=== PATIENT | male | born 1935 | race Caucasian/White ===

== ENCOUNTER 2017-10-10 07:34 | Emergency (ER) | payer OTHER, BC ==
[2017-10-10 08:25] VITALS: BP 143/85; PULSE 65; TEMP 98.3; BMI 30.4
--- NOTE | 2017-10-10 08:50 | PDOC ---
History of Present Illness - General Chief Complaint: Back Pain Stated Complaint: PCP SENT FOR CT SCAN NO PRESCRIPTION Time Seen by Provider: 10/10/17 08:29 History Source: Patient Exam Limitations: No Limitations - History of Present Illness Initial Comments: 10/10/17 08:57 This is an 82-year-old gentleman with past medical history of hypertension, glaucoma, anxiety who presents to emergency department with intermittent lower back pain for the past 4-5 days. Patient states he occasionally feels a sharp spasm in his left lower back. Patient denies any urinary difficulties. Patient contacted his primary doctor Dr. Boland on October 09 who asked patient if he was having hematuria. Patient state he was not having hematuria and PMD told him that he probably needed a CAT scan. Patient denies any fevers, chills, headache, chest pain, shortness of breath, abdominal pain, nausea, vomiting, urinary difficulty, difficulty moving bowels. PMD: Krystian PMH: See history of present illness PSH: Denies Tobacco: Stopped 4 months ago prior to that to cigars daily EtOH: Occasional Illicits: Denies Patient denies any travel outside the [place] within the past 30 days or any contact with anyone who is traveled outside the [place] within the past 30 days. Past History - Past Medical History Allergies/Adverse Reactions: Allergies Allergy/AdvReac Type Severity Reaction Status Date / Time No Known Allergies Allergy Verified 10/10/17 08:13 Home Medications: Ambulatory Orders Aspirin [ASA -] 81 mg PO DAILY 07/26/15 Dorzolamide HCl/Timolol Maleat [Cosopt Eye Drops] 10 ml OP BID 07/26/15 Furosemide [Lasix -] 60 mg PO BID 07/26/15 Losartan Potassium 50 mg PO BID 07/26/15 Potassium Chloride [Klor-Con 10] 20 meq PO DAILY 07/26/15 Alprazolam 0.25 mg PO ASDIR 08/08/15 Hydrocortisone Acetate [Anusol Hc Suppository -] 25 mg RC BID #28 supp.rect 10/10 Cyclobenzaprine HCl [Flexeril 10 mg] 10 mg PO BID PRN #30 tablet 10/10/17 Anemia: No Asthma: No COPD: No Dementia: No Diabetes: No Disorders: No HTN: Yes Liver Disease: No Psychiatric Problems: Yes (ANXIETY) Seizures: No Thyroid Disease: No - Surgical History Orthopedic Surgery: Yes (FX RIGHT ARM) - Suicide/Smoking/Psychosocial Hx Smoking History: Never smoked Have you smoked in the past 12 months: Yes If you are a former smoker, when did you quit?: 2 months ago Cigars Per Day: 2 Information on smoking cessation initiated: No 'Breaking Loose' booklet given: 11/03/16 Hx Alcohol Use: No Drug/Substance Use Hx: No Substance Use Type: None Hx Substance Use Treatment: No Review of Systems - Review of Systems Able to Perform ROS?: Yes Is the patient limited Faroese proficient: No Constitutional: No: Symptoms Reported HEENTM: No: Symptoms Reported Respiratory: No: Symptoms reported Cardiac (ROS): No: Symptoms Reported ABD/GI: No: Symptoms Reported : No: Symptoms Reported Musculoskeletal: Yes: See HPI Integumentary: No: Symptoms Reported Neurological: No: Symptoms reported *Physical Exam - Vital Signs Last Vital Signs Temp Pulse Resp BP Pulse Ox 98.3 F 65 18 143/85 100 10/10/17 07:44 10/10/17 07:44 10/10/17 07:44 10/10/17 07:44 10/10/17 07:44 - Physical Exam General Appearance: Yes: Appropriately Dressed. No: Apparent Distress HEENT: positive: EOMI, PANTERA, Normal ENT Inspection, Normal Voice, TMs Normal, Pharynx Normal Neck: positive: Trachea midline, Supple. negative: Tender Respiratory/Chest: positive: Lungs Clear, Normal Breath Sounds. negative: Chest Tender, Respiratory Distress, Accessory Muscle Use Cardiovascular: positive: Regular Rhythm, Regular Rate, S1, S2. negative: Edema (2+ pedal edema), JVD, Murmur Gastrointestinal/Abdominal: positive: Normal Bowel Sounds, Soft. negative: Tender Musculoskeletal: positive: Normal Inspection, Muscle Spasm (left paraspinous immediately superior to iliac crest). negative: CVA Tenderness Extremity: positive: Normal Inspection, Normal Range of Motion Integumentary: positive: Normal Color, Dry, Warm Neurologic: positive: land measurer II-XII NML intact, Fully Oriented, Alert, Normal Mood/ Affect, Normal Response, Motor Strength 5/5 Medical Decision Making - Medical Decision Making 10/10/17 09:06 A/P: 82-year-old gentleman with past medical history of hypertension and glaucoma who presents with 4-5 days of intermittent left lower back pain. On exam there is a palpable muscle spasm in the paraspinous muscles on the left side immediate this appeared to the iliac crest. Patient states when he comes in contact with colds the pain gets worse in the spasms intensify. Differential diagnosis includes renal stone, paraspinous muscle spasm I will collect a UA. Patient is currently asymptomatic. If UA comes back normal I will defer imaging. I'll reevaluate the patient after UA is returns and medicate if necessary. Patient currently denies any pain I will therefore forego pain medication at this time. 10/10/17 11:10 UA is negative. Patient remains a symptomatic. I will send a prescription for Flexeril for patient to take as needed for pain. I discussed the physical exam findings, ancillary test results and final diagnoses with the patient. I answered all of the patient's questions. The patient was satisfied with the care received and felt comfortable with the discharge plan and treatment plan. The patient will call Dr. Boland within 96 hours to arrange follow-up and will return to the Emergency Department with any new, persistent or worsening symptoms. *DC/Admit/Observation/Transfer Diagnosis at time of Disposition: Muscle spasm of back - Discharge Dispostion Disposition: HOME Condition at time of disposition: Stable Admit: No - Prescriptions Prescriptions: Cyclobenzaprine HCl [Flexeril 10 mg] 10 mg PO BID PRN #30 tablet PRN Reason: Back Pain - Referrals - Patient Instructions Printed Discharge Instructions: DI for Low Back Pain Additional Instructions: Take Flexeril as prescribed for back pain. Warm moist heat may be of assistance in helping relieving the lower back pain. He should rest your back has rest we'll allow the muscles to relax and decreased her pain. You may take Tylenol or Motrin or Aleve as directed by manufacturers instructions for pain. Return to emergency department for any loss of feeling in your genitals or rectum, inability to walk, blood your urine, or any other concerns. Thank you very much for choosing us to provide your emergent healthcare needs. - Post Discharge Activity
[2017-10-10 09:17] LABS: URINE APPEARANCE CLEAR; URINE BILIRUBIN NEGATIVE (NEGATIVE); URINE BLOOD NEGATIVE (NEGATIVE); URINE COLOR LTYELLOW; URINE GLUCOSE (UA) NEGATIVE (NEGATIVE); URINE KETONE NEGATIVE (NEGATIVE); URINE NITRITE NEGATIVE (NEGATIVE); URINE PROTEIN NEGATIVE (NEGATIVE); URINE UROBILINOGEN NEGATIVE mg/dL (0.2-1.0)
[2017-10-10 16:39] LABS: URINE LEUK ESTERASE TRACE (NEGATIVE)
[2017-10-10 20:07] LABS: URINE RBC 0-2 /hpf (0-3)
== END 2017-10-10 11:50 | disposition home or self-care (01) ==
LOC: JER 07:34
DX: M62.830 Muscle spasm of back (principal); I10 Essential (primary) hypertension; F41.9 Anxiety disorder, unspecified; Z87.891 Personal history of nicotine dependence; Z79.82 Long term (current) use of aspirin
CPT/HCPCS: 81003; 81015; 99282-25

== ENCOUNTER 2019-10-26 18:04 | Emergency (ER) | payer OTHER, BC ==
[2019-10-26 18:12] VITALS: BP 178/93; PULSE 89; TEMP 98; BMI 27.3
[2019-10-26] MEDS ORDERED: ACETAMINOPHEN 325 MG TABLET (FP) PO ONE (18:46)
[2019-10-26] MEDS ORDERED: ACETAMINOPHEN 325 MG TABLET (FP) ONE (19:08)
--- NOTE | 2019-10-26 19:12 | PDOC ---
History of Present Illness - General Chief Complaint: Injury Stated Complaint: FALL Time Seen by Provider: 10/26/19 18:20 History Source: Patient - History of Present Illness Occurred: reports: this afternoon Pain Location: reports: upper extremity Method of Injury: Yes: fall Past History - Past Medical History Allergies/Adverse Reactions: Allergies Allergy/AdvReac Type Severity Reaction Status Date / Time No Known Allergies Allergy Verified 10/26/19 18:12 Home Medications: Ambulatory Orders Aspirin [ASA -] 81 mg PO DAILY 07/26/15 Dorzolamide HCl/Timolol Maleat [Cosopt Eye Drops] 10 ml OP BID 07/26/15 Furosemide [Lasix -] 60 mg PO BID 07/26/15 Losartan Potassium 50 mg PO BID 07/26/15 Potassium Chloride [Klor-Con 10] 20 meq PO DAILY 07/26/15 Alprazolam 0.25 mg PO ASDIR 08/08/15 Hydrocortisone Acetate [Anusol Hc Suppository -] 25 mg RC BID #28 supp.rect 10/10 Atorvastatin Ca [Lipitor] 10 mg PO DAILY 06/05/19 Acetaminophen [Tylenol -] 1,000 mg PO Q6H #30 tablet 10/26/19 Anemia: No Asthma: No COPD: No Dementia: No Diabetes: No Disorders: No HTN: Yes Hypercholesterolemia: Yes Liver Disease: No Psychiatric Problems: Yes (ANXIETY) Seizures: No Thyroid Disease: No - Surgical History Orthopedic Surgery: Yes (FX RIGHT ARM) - Psycho Social/Smoking Cessation Hx Smoking History: Never smoked Have you smoked in the past 12 months: Yes If you are a former smoker, when did you quit?: 3 months ago Cigars Per Day: 2 'Breaking Loose' booklet given: 11/03/16 Hx Alcohol Use: No Drug/Substance Use Hx: No Substance Use Type: None Hx Substance Use Treatment: No Review of Systems - Review of Systems Respiratory: No: Shortness of Breath Cardiac (ROS): No: Chest Pain Musculoskeletal: Yes: Joint Pain, Joint Swelling Neurological: No: Headache, Dizziness *Physical Exam - Vital Signs Last Vital Signs Temp Pulse Resp BP Pulse Ox 98 F 89 18 178/93 H 99 10/26/19 18:07 10/26/19 18:07 10/26/19 18:07 10/26/19 18:07 10/26/19 18:07 - Physical Exam General Appearance: Yes: Appropriately Dressed. No: Apparent Distress HEENT: positive: Normal Voice Neck: positive: Supple Respiratory/Chest: positive: Lungs Clear, Normal Breath Sounds. negative: Respiratory Distress Cardiovascular: positive: Regular Rate, S1, S2 Extremity: positive: Tender, Swelling, Other (deformity to L wrist, no snuffbox ttp, NVI) Integumentary: positive: Dry, Warm Neurologic: positive: Fully Oriented, Alert, Normal Mood/Affect Procedures - Splinting Splint Location: Left: Wrist Hand-Made Type: orthoglass Splint Type: Yes: Valentine Benavides Post-Proc Neuro Vasc Exam: normal Steve Bandage: 4" (2) Sling: Yes Complications: No ED Treatment Course - RADIOLOGY Radiology Studies Ordered: Category Date Time Status WRIST W/HAND-LEFT* [RAD] Stat Radiology 10/26/19 18:43 Ordered Medical Decision Making - Medical Decision Making 10/26/19 18:43 84-year-old male, history of HLD, HTN, on baby aspirin daily, here w/ L wrist/ hand pain and swelling s/p fall today. Patient states while cleaning the snow this am, he slipped and fell using R hand to break fall. Adamant that he did not hit his head and no LOC, headache, dizziness, nausea or vomiting. Son at bedside, states he did not witness fall but that patient has exhibited no change in mental status. Pt denies dizziness, CP or SOB prior to fall see exam Concern for L wrist fx -pain control -XR 10/26/19 19:38 "Distal radial partial impaction fracture" on XR. NVI. Sugartong splint placed with ortho referral given Discharge - Discharge Information Problems reviewed: Yes Clinical Impression/Diagnosis: Distal radial fracture Qualifiers: Encounter type: initial encounter Fracture type: closed Fracture morphology: other extra-articular Laterality: left Qualified Code(s): S52.552A - Other extraarticular fracture of lower end of left radius, initial encounter for closed fracture Condition: Good Disposition: HOME - Additional Discharge Information Prescriptions: Acetaminophen [Tylenol -] 1,000 mg PO Q6H #30 tablet - Follow up/Referral - Patient Discharge Instructions Patient Printed Discharge Instructions: DI for Distal Radius Fracture Additional Instructions: You have a wrist fracture and was placed in a splint Keep splint in place and use sling to elevate arm above your heart to reduce swelling R Frain from smoking as this can prevent proper bone healing Please call Dr. Miller of orthopedics tomorrow a.m. to make an appointment for this week Please let staff know that you were seen in the ED and had a splint placed for a wrist fracture - Post Discharge Activity
--- NOTE | 2019-10-26 20:15 | PDOC ---
*Physical Exam - Vital Signs Last Vital Signs Temp Pulse Resp BP Pulse Ox 98 F 89 18 178/93 H 99 10/26/19 18:07 10/26/19 18:07 10/26/19 18:07 10/26/19 18:07 10/26/19 18:07 ED Treatment Course - RADIOLOGY Radiology Studies Ordered: Category Date Time Status WRIST W/HAND-LEFT* [RAD] Stat Radiology 10/26/19 18:43 Completed - Medications Given in the ED: ED Medications Discontinued Medications Generic Name Dose Route Start Last Admin Trade Name Yazan PRN Reason Stop Dose Admin Acetaminophen 650 mg 10/26/19 18:46 10/26/19 19:10 Tylenol - PO 10/26/19 18:47 650 mg ONCE ONE Administration Discharge - Discharge Information Problems reviewed: Yes Clinical Impression/Diagnosis: Distal radial fracture Qualifiers: Encounter type: initial encounter Fracture type: closed Fracture morphology: other extra-articular Laterality: left Qualified Code(s): S52.552A - Other extraarticular fracture of lower end of left radius, initial encounter for closed fracture Condition: Good Disposition: HOME - Additional Discharge Information Prescriptions: Acetaminophen [Tylenol -] 1,000 mg PO Q6H #30 tablet - Follow up/Referral Referrals: Miguel Ángel Miller MD [Staff Physician] - - Patient Discharge Instructions Patient Printed Discharge Instructions: DI for Distal Radius Fracture Additional Instructions: You have a wrist fracture and was placed in a splint Keep splint in place and use sling to elevate arm above your heart to reduce swelling Refrain from smoking as this can prevent proper bone healing Please call Dr. Miller of orthopedics tomorrow a.m. to make an appointment for this week Please let staff know that you were seen in the ED and had a splint placed for a wrist fracture - Post Discharge Activity
== END 2019-10-26 20:14 | disposition home or self-care (01) ==
LOC: JERFT 18:04
PROC: 2W3DX1Z Immobilization of Left Lower Arm using Splint (ICD-10-PCS; principal; 2019-10-26)
DX: S52.552A Other extraarticular fracture of lower end of left radius, initial encounter for closed fracture (principal); W00.2XXA Other fall from one level to another due to ice and snow, initial encounter; Y93.H1 Activity, digging, shoveling and raking; Y92.89 Other specified places as the place of occurrence of the external cause; Y99.8 Other external cause status; I10 Essential (primary) hypertension; E78.00 Pure hypercholesterolemia, unspecified; F41.9 Anxiety disorder, unspecified; Z79.82 Long term (current) use of aspirin
CPT/HCPCS: 29126; 73110-TC-LT-FY; 73130-TC-LT-FY; 99284-25

== ENCOUNTER 2020-12-25 08:26 | Inpatient (IN) | payer OTHER, BC ==
[2020-12-25 08:46] VITALS: BMI 27.3
[2020-12-25 09:37] LABS: VENOUS BASE EXCESS -0.6 mmol/L (-2-2); VENOUS O2 SATURATION 68.8 % (70-80); VENOUS PCO2 45.8 mmHg (38-52); VENOUS PH 7.359 (7.310-7.410)
[2020-12-25 09:39] LABS: BASO % 0.2 % (0-2.0); EOS % 0.1 % (0-4.5); HEMATOCRIT 43.4 % (35.4-49); HEMOGLOBIN 14.5 GM/dL (11.7-16.9); LYMPH % 20.2 % (8-40); MCH 32.3 pg (25.7-33.7); MCHC 33.4 g/dl (32.0-35.9); MEAN CELL VOLUME 96.6 fl (80-96); MEAN PLT VOLUME 8.8 fl (7.5-11.1); MONO % 7.3 % (3.8-10.2); NEUT % 72.2 % (42.8-82.8); PLATELET COUNT 175 K/MM3 (134-434); RDW 13.9 % (11.9-15.9); WHITE BLOOD COUNT 13.1 K/mm3 (4.0-10.0)
[2020-12-25 09:47] LABS: INR 1.1 (0.83-1.09); PROTHROMBIN TIME (PATIENT) 13.3 SEC (9.7-13.0)
[2020-12-25 09:50] LABS: ACTIVATED PTT 43.5 SECONDS (25.2-36.5)
[2020-12-25 09:51] LABS: EPI CELLS 8 /uL (0-25.1); HYALINE CASTS 2 /uL (0-3.1); PH,URINE 5.5 (5.0-8.0); URINE APPEARANCE CLEAR; URINE BACTERIA 28 /uL (0-1359); URINE BILIRUBIN NEGATIVE (NEGATIVE); URINE COLOR YELLOW; URINE GLUCOSE (UA) NEGATIVE (NEGATIVE); URINE KETONE 1+ (NEGATIVE); URINE LEUK ESTERASE NEGATIVE (NEGATIVE); URINE NITRITE NEGATIVE (NEGATIVE); URINE PROTEIN TRACE (NEGATIVE); URINE RBC 6 /uL (0-23.9); URINE WBC 12 /uL (0-25.8)
[2020-12-25 10:00] LABS: CHLORIDE 112 mmol/L (98-107); POTASSIUM 5.6 mmol/L (3.5-5.1); SODIUM 146 mmol/L (136-145)
[2020-12-25 10:02] LABS: CALCIUM 9.2 mg/dL (8.5-10.1)
[2020-12-25 10:03] LABS: ALBUMIN 3.2 g/dl (3.4-5.0); ANION GAP 9 MMOL/L (8-16); BLOOD UREA NITROGEN 31.5 mg/dL (7-18); CO2 25 mmol/L (21-32); GLUCOSE,RANDOM 97 mg/dL (74-106)
[2020-12-25 10:06] LABS: CREATININE 1.5 mg/dL (0.55-1.3); SGOT/AST 62 U/L (15-37); SGPT/ALT 32 U/L (13-61)
[2020-12-25 10:07] LABS: BILIRUBIN,TOTAL 1.4 mg/dL (0.2-1); TOT PROT 7.1 g/dl (6.4-8.2)
[2020-12-25 10:09] LABS: ALK PHOS 138 U/L (45-117)
[2020-12-25 10:10] LABS: N-TERMINAL BNP 534.9 pg/ml (5-450)
[2020-12-25] MEDS ORDERED: SODIUM CHLORIDE 500 ML IV STA (11:22)
[2020-12-25 13:04] LABS: CHLORIDE 114 mmol/L (98-107); POTASSIUM 4.1 mmol/L (3.5-5.1); SODIUM 148 mmol/L (136-145)
[2020-12-25 13:05] LABS: CALCIUM 8.7 mg/dL (8.5-10.1)
[2020-12-25 13:06] LABS: ANION GAP 6 MMOL/L (8-16); BLOOD UREA NITROGEN 32.8 mg/dL (7-18); CO2 28 mmol/L (21-32); GLUCOSE,RANDOM 91 mg/dL (74-106)
[2020-12-25 13:09] LABS: CREATININE 1.3 mg/dL (0.55-1.3)
[2020-12-25] MEDS ORDERED: ACETAMINOPHEN 325 MG TABLET (FP) PO PRN (13:34)
[2020-12-25] MEDS ORDERED: DEXTROSE 5%-WATER - 1,000 ML IV SCH (13:45)
[2020-12-25] MEDS: HEPARIN NA (PORCINE) 5,000 UNITS/ML 1ML VIAL SQ SCH (21:34)
[2020-12-25] MEDS: ATORVASTATIN CA 10 MG TABLET (FP) PO SCH (21:35)
[2020-12-25] MEDS ORDERED: PATIENT'S OWN MEDICATION (NON-FORMULARY) (Dorzolamide Hcl/Timolol Maleat [Cosopt Eye Drops OP SCH (22:00)
[2020-12-26] MEDS ORDERED: PATIENT'S OWN MEDICATION (NON-FORMULARY) (Dorzolamide Hcl/Timolol Maleat [Cosopt Eye Drops OU SCH (00:14)
[2020-12-26 08:14] LABS: BASO % 0.4 % (0-2.0); EOS % 0.6 % (0-4.5); HEMATOCRIT 38.1 % (35.4-49); HEMOGLOBIN 12.9 GM/dL (11.7-16.9); LYMPH % 22.2 % (8-40); MCH 32.2 pg (25.7-33.7); MCHC 33.7 g/dl (32.0-35.9); MEAN CELL VOLUME 95.5 fl (80-96); MEAN PLT VOLUME 8.7 fl (7.5-11.1); NEUT % 67.8 % (42.8-82.8); PLATELET COUNT 175 K/MM3 (134-434); RBC 3.99 M/mm3 (4.00-5.60); RDW 13.8 % (11.9-15.9); WHITE BLOOD COUNT 11.9 K/mm3 (4.0-10.0)
[2020-12-26 08:32] LABS: BLOOD UREA NITROGEN 33.9 mg/dL (7-18); CALCIUM 8.5 mg/dL (8.5-10.1); MAGNESIUM 2.1 mg/dL (1.8-2.4)
[2020-12-26 08:35] LABS: CREATININE 1.6 mg/dL (0.55-1.3)
[2020-12-26] MEDS: SODIUM CHLORIDE 0.45% 1,000 ML IV SCH (09:18)
[2020-12-26] MEDS: HEPARIN NA (PORCINE) 5,000 UNITS/ML 1ML VIAL SQ SCH ×2 (09:19→22:24)
[2020-12-26] MEDS ORDERED: LOSARTAN POTASSIUM 50 MG TABLET PO SCH (10:00)
[2020-12-26 10:07] LABS: PLATELET ESTIMATE NORMAL
[2020-12-26] MEDS: ATORVASTATIN CA 10 MG TABLET (FP) PO SCH (22:23)
[2020-12-27 08:02] LABS: BASO % 0.4 % (0-2.0); EOS % 2.4 % (0-4.5); HEMATOCRIT 34.1 % (35.4-49); HEMOGLOBIN 11.6 GM/dL (11.7-16.9); LYMPH % 29.7 % (8-40); MCH 32.9 pg (25.7-33.7); MEAN CELL VOLUME 96.6 fl (80-96); MEAN PLT VOLUME 9.4 fl (7.5-11.1); MONO % 9.5 % (3.8-10.2); PLATELET COUNT 152 K/MM3 (134-434); RBC 3.53 M/mm3 (4.00-5.60); RDW 14.3 % (11.9-15.9); WHITE BLOOD COUNT 8.6 K/mm3 (4.0-10.0)
[2020-12-27 08:25] LABS: POTASSIUM 4.1 mmol/L (3.5-5.1)
[2020-12-27 08:32] LABS: CALCIUM 8.1 mg/dL (8.5-10.1)
[2020-12-27 08:33] LABS: ALBUMIN 2.3 g/dl (3.4-5.0); BLOOD UREA NITROGEN 31.3 mg/dL (7-18); MAGNESIUM 2.2 mg/dL (1.8-2.4)
[2020-12-27 08:35] LABS: BILIRUBIN,TOTAL 1.1 mg/dL (0.2-1); CREATININE 1.5 mg/dL (0.55-1.3); PHOSPHOROUS 2.6 mg/dL (2.5-4.9); TOT PROT 5.2 g/dl (6.4-8.2)
[2020-12-27] MEDS: SODIUM CHLORIDE 0.45% 1,000 ML IV SCH (09:29)
[2020-12-27] MEDS: LOSARTAN POTASSIUM 25 MG TABLET PO SCH (10:28)
[2020-12-27] MEDS: DORZOLAMIDE 2% HCL OPHTHALMIC SOLUTION 10 ML BOTTLE OU SCH ×2 (10:30→21:45)
[2020-12-27] MEDS: HEPARIN NA (PORCINE) 5,000 UNITS/ML 1ML VIAL SQ SCH ×2 (10:31→21:43)
[2020-12-27] MEDS: TIMOLOL 0.5% OPHTHALMIC SOL 5 ML BOTTLE OU SCH ×2 (10:32→21:45)
[2020-12-27] MEDS: ATORVASTATIN CA 10 MG TABLET (FP) PO SCH (21:43)
[2020-12-28] MEDS: LOSARTAN POTASSIUM 25 MG TABLET PO SCH (09:09)
[2020-12-28] MEDS: HEPARIN NA (PORCINE) 5,000 UNITS/ML 1ML VIAL SQ SCH ×2 (09:09→21:55)
[2020-12-28] MEDS: SODIUM CHLORIDE 0.45% 1,000 ML IV SCH (09:10)
[2020-12-28] MEDS: DORZOLAMIDE 2% HCL OPHTHALMIC SOLUTION 10 ML BOTTLE OU SCH ×2 (09:10→21:57)
[2020-12-28] MEDS: TIMOLOL 0.5% OPHTHALMIC SOL 5 ML BOTTLE OU SCH ×2 (09:10→21:56)
[2020-12-28] MEDS: ATORVASTATIN CA 10 MG TABLET (FP) PO SCH (21:55)
[2020-12-29] MEDS: TIMOLOL 0.5% OPHTHALMIC SOL 5 ML BOTTLE OU SCH ×2 (10:53→10:54)
[2020-12-29] MEDS: DORZOLAMIDE 2% HCL OPHTHALMIC SOLUTION 10 ML BOTTLE OU SCH ×2 (10:54→10:55)
[2020-12-29] MEDS: LOSARTAN POTASSIUM 25 MG TABLET PO SCH (10:55)
[2020-12-29] MEDS: SODIUM CHLORIDE 0.45% 1,000 ML IV SCH (10:55)
[2020-12-29] MEDS: HEPARIN NA (PORCINE) 5,000 UNITS/ML 1ML VIAL SQ SCH (10:55)
[2020-12-29 15:14] VITALS: BP 117/68; PULSE 75; TEMP 98.2
== END 2020-12-29 18:24 | disposition home or self-care (01) | DRG 683 ==
LOC: JER 08:26 → JERBED 11:00 → OBSVTOIN 13:21 → J6WEST-2 14:50 → J4W 12-26 21:19
PROVIDERS: ADMIT Internal Medicine; ATTEND Student in an Organized Health Care Education/Training Program
DX: N17.9 Acute kidney failure, unspecified (principal); C71.9 Malignant neoplasm of brain, unspecified; I13.0 Hypertensive heart and chronic kidney disease with heart failure and stage 1 through stage 4 chronic kidney disease, or unspecified chronic kidney disease; E87.0 Hyperosmolality and hypernatremia; M62.82 Rhabdomyolysis; L97.818 Non-pressure chronic ulcer of other part of right lower leg with other specified severity; E78.5 Hyperlipidemia, unspecified; N18.9 Chronic kidney disease, unspecified; I50.9 Heart failure, unspecified; D72.829 Elevated white blood cell count, unspecified; E86.0 Dehydration; R91.1 Solitary pulmonary nodule; F17.210 Nicotine dependence, cigarettes, uncomplicated; S50.312A Abrasion of left elbow, initial encounter; S50.311A Abrasion of right elbow, initial encounter; S01.00XA Unspecified open wound of scalp, initial encounter; W18.39XA Other fall on same level, initial encounter; Z85.828 Personal history of other malignant neoplasm of skin
CPT/HCPCS: 36415; 70450-TC; 71045-TC-FY; 72125-TC; 72170-TC-FY; 80048; 80053; 80061; 81003; 82550; 82553; 82803; 83036; 83605; 83721; 83735; 83880; 84100; 84443; 84484; 85025; 85610; 85730; 87086; 87804; 93005; 93010; 97116-GP; 97161-GP; 99285-25; C9803; G0378; J1644; U0003